=== PATIENT | male | born 1995 | race American Indian/Alaskan Native ===

== ENCOUNTER 2021-12-09 20:58 | Emergency (ER) | payer SELFPAY ==
[2021-12-09 22:29] VITALS: BP 126/67
[2021-12-10 02:56] LABS: Bilirubin,Urine NEG (Negative); Blood,Urine NEG (Negative); Color,Urine Yellow (Yellow); Protein,Urine <15 mg/dL mg/dL (Negative)
[2021-12-10 02:58] LABS: Mucus,Urine FEW /HPF
--- NOTE | 2021-12-11 11:54 | Electrocardiograph Report ---
[facility] Test Date: 2021-12-09 Test Time: 22:31:57 Pat Name: GRIFFIN SANCHEZ Department: Room: Gender: M [employer] Operator: ADELFO : 1995 Requested By: RAD LOPEZ Order Number: [id number] Reading MD: Narciso Esparza Measurements Intervals [place] Rate: 69 P: 32 WA: 155 QRS: 59 QRSD: 78 T: 56 QT: 346 QTc: 372 Interpretive Statements Sinus rhythm No previous ECG available for comparison Electronically Signed On 12-11-2021 8:54:14 PDT by Narciso Esparza
== END 2021-12-10 03:15 | disposition left against medical advice (07) ==
LOC: EDSEX → ED 20:58
DX: R42 Dizziness and giddiness (principal); R53.83 Other fatigue; Z53.21 Procedure and treatment not carried out due to patient leaving prior to being seen by health care provider
CPT/HCPCS: 81001; 93005